=== PATIENT | female | born 1960 | race Caucasian/White ===

== ENCOUNTER → 2016-05-29 | Outpatient (CLI) | payer BC ==
--- NOTE | 2016-05-30 10:11 | MM ---
Reason for exam: screening (asymptomatic). Last mammogram was performed 3 years and 1 month ago. History: Patient is postmenopausal and is nulliparous. Family history of breast cancer in sister at age 68. Taking estrogen beginning at age 44. Physical Findings: A clinical breast exam by your physician is recommended on an annual basis and results should be correlated with mammographic findings. MG Screening Mammo w CAD Bilateral CC and MLO view(s) were taken. Prior study comparison: April 16, 2013, bilateral digital screening mammo w/CAD. November 19, 2006, bilateral screening mammogram w/CAD. There are scattered fibroglandular densities. There is no discrete abnormality. ASSESSMENT: Negative, BI-RAD 1 RECOMMENDATION: Routine screening mammogram of both breasts in 1 year.
== END ==
LOC: RADMAMWWP 15:30
PROVIDERS: ATTEND Family Medicine
DX: Z12.31 Encounter for screening mammogram for malignant neoplasm of breast (principal); Z80.3 Family history of malignant neoplasm of breast

== ENCOUNTER → 2019-07-07 | Outpatient (CLI) | payer OTHER ==
--- NOTE | 2019-07-07 08:43 | US ---
EXAMINATION TYPE: US thyroid st tissue head/neck DATE OF EXAM: 07/07/2019 COMPARISON: Prior thyroid ultrasound October 17, 2011 CLINICAL HISTORY: E04.1 Thyroid nodule. f/u exam, previous biopsies, took radiation pill this past y ear GLAND SIZE: Right Lobe: 2.8 x 1.2 x 0.7 cm Overall Parenchyma: heterogenous Left Lobe: 3.4 x 1.1 x 1.2 cm Overall Parenchyma: heterogeneous Isthmus Thickness: 0.1 cm NODULES RIGHT: # of nodules measured on right: 0 LEFT: # of nodules measured on left: 0 ISTHMUS: # of nodules measured in the isthmus: 0 Bilateral neck scanned, no evidence of lymphadenopathy. There is markedly heterogeneous small size thyroid after iodine radiation treatment with poor visuali zation of discrete nodule. Punctate echogenic foci or calcifications scattered throughout the left th yroid lobe remain present. IMPRESSION: Small residual heterogeneous thyroid after suspected iodine treatment with left-sided chanda rocalcifications redemonstrated. No discrete nodule clearly seen currently.
--- NOTE | 2019-07-08 12:15 | MM ---
Reason for exam: screening (asymptomatic). Last mammogram was performed 3 years and 1 month ago. History: Patient is postmenopausal and is nulliparous. Family history of breast cancer in sister at age 68. Took estrogen beginning at age 44. Taking progesterone. Physical Findings: A clinical breast exam by your physician is recommended on an annual basis and results should be correlated with mammographic findings. MG Screening Mammo w CAD Bilateral CC and MLO view(s) were taken. Prior study comparison: May 29, 2016, bilateral MG screening mammo w CAD. April 16, 2013, bilateral digital screening mammo w/CAD. There are scattered fibroglandular densities. No suspicious abnormality. No significant changes when compared with prior studies. ASSESSMENT: Negative, BI-RAD 1 RECOMMENDATION: Routine screening mammogram of both breasts in 1 year.
== END | disposition home or self-care (01) ==
LOC: RADMAMWWP 07:08
PROVIDERS: ATTEND Family Medicine
DX: Z12.31 Encounter for screening mammogram for malignant neoplasm of breast (principal); E07.89 Other specified disorders of thyroid
CPT/HCPCS: 76536; 77067

== ENCOUNTER → 2020-05-27 | Outpatient (CLI) | payer OTHER ==
--- NOTE | 2020-05-27 07:42 | MR ---
EXAMINATION TYPE: MR angio head wo con DATE OF EXAM: 05/27/2020 COMPARISON: NONE HISTORY: Vision loss, headaches TECHNIQUE: Time of flight images focusing on the [place] were performed without contrast.. 2-D and 3-D postprocessing imaging is performed on a independent workstation and reviewed. FINDINGS: Slightly larger caliber right vertebral artery. Vertebral arteries are patent to basilar ju nction. Hypoplastic bilateral posterior communicating arteries. No significant focal stenosis or aneu rysmal change in the anterior circulation. There is patent anterior communicating artery seen on image 114. There is no significant focal stenos is or aneurysmal change in the anterior circulation IMPRESSION: No significant focal stenosis or aneurysm at the level of the [place].
== END | disposition home or self-care (01) ==
LOC: RADMRIMAIN 06:46
PROVIDERS: ATTEND Nurse Practitioner Family
DX: H47.293 Other optic atrophy, bilateral (principal); H53.9 Unspecified visual disturbance; R51.9 Headache, unspecified
CPT/HCPCS: 70544

== ENCOUNTER → 2022-05-29 | Outpatient (CLI) | payer OTHER ==
--- NOTE | 2022-05-29 10:18 | BD ---
EXAMINATION TYPE: Axial Bone Density DATE OF EXAM: 05/29/2022 COMPARISON: BASELINE CLINICAL HISTORY: 61 years old Female. ICD-10 CODE: Z78.0 asymptomatic menopausal Height: 68 Weight: 240 FRAX RISK QUESTIONS: Family History (Parent hip fracture): NO History of Fracture in Adulthood: NO Secondary Osteoporosis: YES 3. Menopause before 45: YES TOTAL HYST 43 Rheumatoid Arthritis: NO RISK FACTORS HISTORY OF: Surgery to Wrist (right/left): YES When: 1999 Family History of Osteoporosis: NO Active: YES Diet low in dairy products/other sources of calcium: YES Postmenopausal woman: YES Lost more than 2 inches in height since high school: YES Frequent falls: NO Poor Health: NO MEDICATIONS: Thyroid Medications: YES Which medication: Synthroid How Lon+ YEARS Additional Medications: YES CYMBALTA , HBP , MULTI VIT, D3 Additional History: YES RADIOACTIVE IODINE FOR THYROID 2004 EXAM MEASUREMENTS: Bone mineral densitometry was performed using the E-House System. Bone mineral density as measured about the Lumbar spine is: ----- L1-L4(G/cm2): 1.462 T Score Values are as follows: ----- L1: 1.0 ----- L2: 1.6 ----- L3: 3.1 ----- L4: 3.5 ----- L1-L4: 2.4 Bone mineral density BASELINE Bone mineral density about the R hip (g/cm2): 0.946 Bone mineral density about the L hip (g/cm2): 0.914 T Score values are as follows: -----R Neck: -1.1 -----L Neck: -1.5 -----R Total: -0.5 -----L Total: -0.7 Bone mineral density BASELINE FRAX%s: The graph provided illustrates a 7.6% chance for a major osteoporotic fx and a 0.6% chance fo r the hips probability for fx in 10 years time. IMPRESSION: Osteopenia (T Score between -2.5 and -1). There is slightly increased risk of fracture and the patient may be considered for treatment. Re-Screen 2-5 years. NOTE: T-SCORE=SD OF THE YOUNG ADULT MEAN.
--- NOTE | 2022-05-30 08:27 | MM ---
Reason for Exam: Screening (asymptomatic). Last mammogram was performed 2 year(s) and 10 month(s) ago. Patient History: Menarche at age 15. Patient has no children. Left ovary removed at age 44. Right ovary removed at age 44. Hysterectomy at age 44. Postmenopausal. Estrogen, starting at age 44. Currently using Progesterone. Sister had breast cancer, age 68. Risk Values: Lydia 5 year model risk: 2.7%. NCI Lifetime model risk: 12.4%. Prior Study Comparison: 04/16/2013 Bilateral Screening Mammogram, [facility]. 05/29/2016 Bilateral Screening Mammogram, [facility]. 07/07/2019 Bilateral Screening Mammogram, [facility]. Tissue Density: There are scattered fibroglandular densities. Findings: Analyzed By CAD. There is no suspicious group of microcalcifications or new suspicious mass in either breast. Overall Assessment: Negative, BI-RAD 1 Management: Screening Mammogram of both breasts in 1 year. A clinical breast exam by your physician is recommended on an annual basis and results should be correlated with mammographic findings. Electronically signed and approved by: Deonte Arias M.D. Radiologis
== END | disposition home or self-care (01) ==
LOC: RADBDWWP 09:20
PROVIDERS: ATTEND Internal Medicine
DX: Z12.31 Encounter for screening mammogram for malignant neoplasm of breast (principal); Z13.820 Encounter for screening for osteoporosis; M85.89 Other specified disorders of bone density and structure, multiple sites; Z78.0 Asymptomatic menopausal state; Z80.3 Family history of malignant neoplasm of breast
CPT/HCPCS: 77067; 77080

== ENCOUNTER → 2022-11-21 | Outpatient (CLI) | payer OTHER ==
[2022-11-21 11:06] LABS: INR 0.9 (<1.2); Prothrombin Time 9.6 sec (9.0-12.0)
[2022-11-21 17:31] LABS: ALT 18 U/L (8-44); AST 22 U/L (13-35); Albumin 4.4 d/dL (3.8-4.9); Albumin/Globulin Ratio 1.76 Ratio (1.60-3.17); Alkaline Phosphatase 94 U/L (41-126); BUN/Creat Ratio 24.62 Ratio (12.00-20.00); Blood Urea Nitrogen 19.7 mg/dL (9.0-27.0); Calcium 10.3 mg/dL (8.7-10.3); Carbon Dioxide 26.2 mmol/L (21.6-31.8); Chloride 106 mmol/L (96-109); Globulin 2.5 d/dL (1.6-3.3); Glucose 106 mg/dL (70-110); Potassium 4.8 mmol/L (3.5-5.5); Sodium 141 mmol/L (135-145); Total Bilirubin 1.1 mg/dL (0.3-1.2); Total Protein 6.9 d/dL (6.2-8.2)
[2022-11-21 17:55] LABS: HCT 48.3 % (37.2-46.3); HGB 15.7 d/dL (12.0-15.0); MCH 30.7 pg (27.0-32.0); MCHC 32.5 d/dL (32.0-37.0); MCV 94.5 FL (80.0-97.0); Mean Platelet Volume 11.3 FL (9.5-12.2); NRBC Per 100 WBC 0 X 10*3/uL (0.00-0.01); Platelet Count 333 X 10*3/uL (140-440); RBC 5.11 X 10*6/uL (4.10-5.20); RDW 12.6 % (11.5-14.5); WBC 6.56 X 10*3/uL (4.50-10.00)
[2022-11-21 21:22] LABS: Appearance,Urine Clear (Clear); Bilirubin,Urine Negative (Negative); Blood,Urine Negative (Negative); Color,Urine Yellow (Yellow); Ketones,Urine Negative (Negative); Nitrite,Urine Negative (Negative); PH, Urine 5.5; Specific Gravity,Urine 1.021 (1.001-1.030); Urobilinogen,Urine 0.2 E.U./DL
== END | disposition home or self-care (01) ==
LOC: LABPAT 09:19
PROVIDERS: ATTEND Orthopaedic Surgery Sports Medicine
DX: Z01.812 Encounter for preprocedural laboratory examination (principal); M17.10 Unilateral primary osteoarthritis, unspecified knee
CPT/HCPCS: 80053; 81003; 85027; 85610; 85730; 87070; 93005

== ENCOUNTER → 2022-11-23 | Outpatient (CLI) | payer OTHER | END | disposition home or self-care (01) | LOC: LABPAT 15:14 | PROVIDERS: ATTEND Orthopaedic Surgery Sports Medicine | DX: I49.8 Other specified cardiac arrhythmias (principal); I44.4 Left anterior fascicular block; R94.31 Abnormal electrocardiogram [ECG] [EKG] | CPT/HCPCS: 93005 ==

== ENCOUNTER 2022-12-20 05:33 | Day surgery (SDC) | payer OTHER ==
[~2022-12-20 05:33] MED LIST: ACETAMINOPHEN TAB 500 MG TAB PO PRN; GABAPENTIN 300 MG CAP PO PRN; MELOXICAM 7.5 MG TAB PO PRN; ONDANSETRON 4 MG/2 ML VIAL IVP PRN; TRANEXAMIC 1,000 MG/100ML-NACL 1,000 MG in SALINE 1 100ML.BAG IVPB PRN
[2022-12-20] MEDS ORDERED: LACTATED RINGERS 1,000 ML IV ONE ×2 (05:45→08:41)
[2022-12-20] MEDS ORDERED: MIDAZOLAM 2 MG/2 ML VIAL IV PRN (05:52)
[2022-12-20] MEDS ORDERED: ONDANSETRON 4 MG/2 ML VIAL IVP ONE (05:52)
[2022-12-20] MEDS ORDERED: DEXAMETHASONE SOD PHOSPHATE 4 MG/ML 1 ML VIAL IV ONE (05:52)
[2022-12-20] MEDS ORDERED: LIDOCAINE 1% (10MG/ML) FOR IV START INTRADERMA PRN (05:52)
[2022-12-20] MEDS ORDERED: HYDROmorphone 0.5 MG/0.5 ML SYRINGE IVP PRN ×3 (05:52→07:05)
[2022-12-20 06:25] LABS: Glucose,Whole Blood 104 mg/dL (70-110)
[2022-12-20] MEDS ORDERED: MIDAZOLAM 2 MG/2 ML VIAL IVP ONE ×2 (06:38→06:50)
[2022-12-20] MEDS ORDERED: fentaNYL (PF) 50 MCG/ML 2 ML AMP ONE (07:00)
[2022-12-20] MEDS ORDERED: PHENYLEPHRINE-0.9% NACL SYG 1,000 MCG/10 ML SYRINGE ONE (07:00)
[2022-12-20] MEDS ORDERED: PROPOFOL 10 MG/ML 20 ML VIAL IV ONE (07:00)
[2022-12-20] MEDS ORDERED: ROPIVACAINE 5 MG/ML 30 ML VIAL ONE (07:00)
[2022-12-20] MEDS ORDERED: KETAMINE 10 MG/ML 20 ML VIAL ONE (07:00)
[2022-12-20] MEDS ORDERED: MIDAZOLAM 2 MG/2 ML VIAL ONE (07:00)
[2022-12-20] MEDS ORDERED: TRANEXAMIC 1,000 MG/100ML-NACL PREMIX BAG ONE (07:00)
[2022-12-20] MEDS ORDERED: DEXAMETHASONE SOD PHOSPHATE 4 MG/ML 1 ML VIAL ONE (07:00)
[2022-12-20] MEDS ORDERED: NALOXONE 0.4 MG/ML 1 ML VIAL IV PRN (07:05)
[2022-12-20] MEDS ORDERED: NA PHOS,M-B/NA PHOS,DI-BA 133 ML ENEMA RECTAL PRN (07:05)
[2022-12-20] MEDS ORDERED: HYDROmorphone 1 MG/ML 1 ML SYRINGE IVP PRN (07:05)
[2022-12-20] MEDS ORDERED: MAGNESIUM HYDROXIDE 2,400 MG/30 ML CUP PO PRN (07:05)
[2022-12-20] MEDS ORDERED: ACETAMINOPHEN TAB 325 MG TAB PO PRN (07:05)
[2022-12-20] MEDS ORDERED: bisacodyL 10 MG SUPP RECTAL PRN (07:05)
[2022-12-20] MEDS ORDERED: traMADol 50 MG TAB PO PRN (07:05)
[2022-12-20] MEDS ORDERED: ONDANSETRON 4 MG/2 ML VIAL IVP PRN (07:05)
[2022-12-20] MEDS ORDERED: ceFAZolin 3,000 MG in SODIUM CHLORIDE 0.9% IRRIGATIO 3,000 ML IRRIGATION ONE (07:35)
[2022-12-20] MEDS ORDERED: ROPIVACAINE 1,100 MG, SODIUM CHLORIDE 0.9% 500 ML 330 ML, EMPTY PAIN BALL 1 EACH MISCELLANE PRN ×2 (09:34)
--- NOTE | 2022-12-20 09:47 | XR ---
EXAMINATION TYPE: XR knee limited LT DATE OF EXAM: 12/20/2022 9:44 AM INDICATION: Patient age:Female; 62 years old; Reason for study: Evaluation for Postop abnormality and alignment; PHH. COMPARISON: None. TECHNIQUE: The Left knee(s) was examined in AP and crosstable lateral projections. FINDINGS: Postsurgical changes from left knee arthroplasty with distal femoral and proximal tibial components. Hardware appears intact with appropriate alignment. There is associated soft tissue gas a nd edema. No acute fracture or dislocation. IMPRESSION: Postsurgical changes from left knee arthroplasty. Hardware appears intact with appropriate alignment.
--- NOTE | 2022-12-20 10:08 | OP ---
OPERATIVE REPORT DATE OF SERVICE : 12/20/2022 MANAGER PRODUCT MANAGEMENT: Galindo Menchaca PA-C PREOPERATIVE DIAGNOSIS: Left knee osteoarthrosis. POSTOPERATIVE DIAGNOSIS: Left knee osteoarthrosis. OPERATION: Left total knee arthroplasty. ANESTHESIA: Spinal with sedation. ESTIMATED BLOOD LOSS: 100 mL. TOURNIQUET TIME: 55 minutes at 250 mmHg. COMPLICATIONS: None apparent. DRAINS: None. DISPOSITION: Postanesthesia care unit. INDICATIONS FOR PROCEDURE: Marlin is a very pleasant 62-year-old female with longstanding history of left knee pain. History and physical examination are consistent with advanced left knee osteoarthrosis. She has been through significant operative management up to this point. Further treatment options were discussed. She decided to go forward with a left total knee arthroplasty. The risks of procedure were discussed with her in detail. These risks include but are not limited to risk of infection, nerve damage, bleeding, pain, and a small risk of deep vein thrombosis, which could lead to fatal pulmonary embolism. There is also a small risk of loosening of the implant, which could require revision operation. The patient understands these risks. All of her questions with regard to the procedure were answered to her satisfaction. An appropriate informed consent was obtained. DESCRIPTION OF PROCEDURE: The patient was identified in the preoperative holding area. Surgical site was marked by both the patient and myself. She was given 2 g of Ancef IV for prophylactic purposes. She was then transported to the operative suite. She was placed supine in the operating room table. A spinal anesthetic was then administered and dosed per the Anesthesia Department without apparent complication. An examination under anesthesia was then performed. She was 2 to 3 degrees shy of full extension. She had 100 degrees of flexion and the medial collateral ligament, lateral collateral ligament, and posterior cruciate ligaments were stable. Tourniquet was then placed high on the left upper thigh, well padded in preparation for surgery. The patient's left lower extremity was then prepped and draped in the usual sterile fashion. Standard surgical pause was undertaken to ensure that we were operating the correct site and that appropriate preoperative antibiotics had been given. All staff in the room were in agreement, and we proceeded. The outlines of the patella were then marked with a surgical pen. A planned 12 cm vertical incision centered over the patella was marked with a surgical pen. Leg was then exsanguinated with an Esmarch dressing. The knee was then flexed, and the tourniquet was inflated to 250 mmHg. The total tourniquet time for the procedure was 55 minutes. Incision was then made with a 10-blade scalpel. Dissection was carried down sharply to the overlying fascia. Great care was taken to minimize the skin flaps. The knee was then exposed using a standard medial parapatellar approach. A small cuff of quadriceps tendon was then left for suturing. She was in a small bit of valgus preoperatively. A minimal medial release was then made. Superficial medial collateral ligament was dissected off the bone around to the posterior aspect of the proximal tibia. Medial meniscus was then excised as well. The lateral meniscus was also released anteriorly. The leg was then externally rotated. The patella was everted. The knee was flexed. Retractors were then placed to protect the collateral ligaments. I then proceeded to remove the infrapatellar fat pad. This was excised sharply tangentially with fibers of the patellar tendon. I then proceeded to remove the peripheral osteophytes. This was done with a rongeur. I then proceeded with the distal femoral resection. She did have near full extension. A planned 9 mm resection was then done. The femoral canal was entered in the midline of the femur approximately 10 mm anterior to the origin of the posterior cruciate ligament. The rochelle was then advanced down the center of the femur and placed intramedullary. Based on the preoperative radiographs, the angle between the anatomic and mechanical axis of the femur was approximately 4 to 5 degrees. The valgus angle of the distal femoral cutting guide was then set at 4 degrees for the left knee. The distal cutting guide was then advanced over the intramedullary rochelle. This was seated firmly against the femur. Then, as mentioned, planned to take 9 mm off the distal femur. The cutting block was then secured onto the femur with pins. Jig was then removed. Distal femoral cut was made through the slot of the block. The pins were then removed. The distal femoral cutting block was removed. The accuracy of the distal femoral cuts was checked with 2 flat bars. I then proceeded with femoral sizing. Posterior referencing sizing guide was held firmly against the resected distal surface of the femur. The posterior condyles were resting on the posterior plane of the guide. The sizing stylus was then placed onto the anterior femur. The size was measured as a size 9. I then assessed for femoral rotation. Plan was for 3 degrees of external rotation. Three degrees of external rotation was placed onto the jig. These holes were then marked. I then confirmed the rotation by 3 separate methods. This was done using epicondylar axis as well as Whitesides line and posterior referencing. It was deemed that the external rotation was proper. I then went forward with placement of the femoral cutting block. This was placed over the previously placed pin holes. The Aníbal wing was then placed on the anterior slots to ensure that we would not notch the anterior femur with the anterior femoral cut. I then proceeded with the anterior femoral cut. This was flushed with the anterior cortex of the femur. The posterior cuts were then made followed by the anterior chamfer cut and then the posterior chamfer cut. The cutting block was then removed. Throughout the resection, the collateral ligaments were protected with retractors. I then placed a trial size 9 femur. It fit very nicely and it fit flush with the distal end of the femur. The drill holes were then made. I then proceeded with the tibial cut. I planned for cruciate-retaining knee. The guide was placed and set for varus/valgus and for slope. The height was set for approximately 2 mm resection from the lateral tibial plateau, which was the lower side. I was happy with the alignment and the amount of resection. The cutting block was then pinned to the proximal tibia. The alignment rochelle was removed, and the proximal tibia was resected with a reciprocating saw. Again, this was done with retractors, protecting the collateral ligaments as well as the posterior cruciate ligament. I then proceeded to re-evaluate flexion-extension gaps. A 10 mm block was then placed. The flexion-extension gaps were equal. I then proceeded to resect the posterior osteophytes. She had very minimal posterior osteophytes. This was done using a curved osteotome. This resected the posterior osteophytes, and posterior capsular stripping was done off the posterior aspect of the femur at this time. The osteophytes were then removed. I then proceeded with the resection of the patella. The thickness of the patella was measured using the caliper. The thickness was 22 mm. The thickness of the anticipated patellar dome was taken into account. Resection was then performed and confirmed to be equal in 4 quadrants using a caliper. Approximately 14 mm of bone remained after resection. A 29 x 8 standard patellar trial was then placed. The holes were drilled, and the trial was then placed. I then proceeded with sizing tibial plate. A size E tibial plate fit very nicely. I then placed the trial femur, the tibial tray, and patellar button. A 10 mm trial tibial insert was also placed. The components fit very nicely. She had full extension and flexion. The extension and flexion gaps were equal and stable to both varus and valgus stress. The patella tracked appropriately. The tibial tray rotation was then marked with a Bovie. It was externally rotated properly. I then proceeded with tibial preparation. I first drilled the femoral holes and removed the femoral component. The tibial tray was then set for proper external rotation as well as medial and lateral placement of the tibia. This was then pinned in place. I then proceeded with punching the keel. I then decided to proceed with cementing of all our components. The knee was thoroughly irrigated with sterile saline solution via pulse lavage. The lateral geniculate artery was identified and cauterized. All blood was removed from the bone of the tibia, femur, and patella with pulse lavage. I then proceeded with cementing. Two packs of antibiotic bone cement prepared on the back table by the surgical garment assembler. I then proceeded with cementing the tibia first. The cement was impacted into the keel as well as deeply seated into the bone. A second coat of cement was then placed. The tibia was then impacted into place. Excess cement was removed with Michael's and Joker's. I then proceeded with cementing of the femoral component. The femoral component was also cemented using standard technique. Excess cement was removed. A 10 mm trial insert was then placed into the knee. It was brought into full extension with a constant axial load placed until the cement had hardened. The patellar component was then cemented. This was held firmly with a compressive device until the cement had dried. When the cement had dried, the knee was taken out of extension. All excess cement was removed from around the prosthesis. I then trialed the knee with a 10 mm insert. Flexion and extension gaps were appropriate. The knee was stable. It came into full extension. I decided to go forward with the 10 mm Medial Congruent cross-linked cruciate-retaining tibial insert. Polyethylene was then placed on the tibial tray and locked into place. The knee was then reduced. The knee was again further irrigated with sterile saline solution with antibiotic added. The tourniquet was then deflated. The tourniquet was then deflated. Total tourniquet time for the procedure was 55 minutes at 250 mmHg. Final components were Benny Persona Tivanium size 9 cruciate-retaining femoral component, a size E tibial tray, a 10 mm medial congruent cruciate-retaining polyethylene insert, and a 29 x 8 mm patella. I then proceeded with closure. Again, the knee was thoroughly irrigated. The quadriceps tendon and the medial retinaculum were reapproximated with #2 Ethibond suture. The extensor mechanism was then closed with a running #2 Quill suture. Subcutaneous tissues were closed with 2-0 Vicryl interrupted suture. The skin was closed with a running 3-0 Quill suture. Dermabond was applied to the incision. A sterile compressive dressing was then applied. All sponge and needle counts were deemed correct prior to closure. The patient tolerated the procedure without apparent complication. She was transferred to the recovery room in stable condition. MMODL / IJN: [id number] /
[2022-12-20] MEDS: LACTATED RINGERS 1,000 ML IV SCH ×5 (12:10→23:54)
[2022-12-20] MEDS: HYDROcodone/APAP 7.5-325MG 1 EACH TAB PO PRN ×2 (13:19→18:13)
[2022-12-20] MEDS ORDERED: LORazepam 1 MG TAB PO PRN (13:26)
[2022-12-20] MEDS ORDERED: DEXTROSE 50% SYRINGE 50 ML IVP PRN ×2 (13:27)
--- NOTE | 2022-12-20 13:29 | P.CONS ---
History of Present Illness - Reason for Consult Consult date: 12/20/22 Medical Management Requesting physician: Wilian Good - History of Present Illness History of Presenting Illness: Patient is a pleasant 62-year-old female with a past medical history of hypertension, hypothyroidism, GERD, type II nxg-udsmdqx-tzmlsapcd diabetes mellitus, chronic constipation, diverticulosis, anxiety with history of panic attacks, and osteoarthritis. She is currently admitted to orthopedic surgery team status post left total knee arthroplasty completed by Dr. Good. We have been consulted for medical management throughout patient's hospitalization. Patient seen and fully evaluated at bedside. She was resting comfortably in bed with family visiting at bedside. She reports postoperative pain to left knee is controlled, but does report that her eyes feel extremely dry. She denies having any headache, lightheadedness, dizziness, chest pain, palpitations, shortness of breath, or experiencing any numbness/tingling/focal weakness in her extremities. She denies experiencing any postoperative nausea or vomiting and tolerating oral intake. She reports so far she is having a much easier time and she had with her right knee 6 months ago. She denies history of DVT or PE. She is tolerating oral intake and denies having any postoperative nausea or vomiting. Review of systems: Pertinent positives and negatives as discussed in HPI, a complete review of systems was performed and all other systems are negative. Physical exam: Vital signs reviewed and stable. General: Nontoxic, no distress and appears stated age. Derm: Skin warm and dry, normal coloration for ethnicity. Head: Atraumatic, normocephalic and symmetric. Eyes: EOMs intact, no lid lag, and anicteric sclera Mouth: no lip lesions, mucus membranes moist Cardiovascular: regular rate and rhythm with normal S1S2, no murmur, positive posterior tibial pulses bilaterally, and cap refill < 2 seconds. Lungs: Respirations even, regular, and unlabored on room air. Lungs CTA bilater ally, no rhonchi, no rales, no wheezing, and no accessory muscle usage. Abdominal: soft, nontender to palpation, no guarding, no appreciable organomegaly Ext: No gross muscle atrophy, no edema, no contractures. Movement and sensation intact. Postsurgical dressing/Luiz wrap in place to left knee along with ice packs. Neuro: Speech clear, face symmetrical and CN II-XII grossly intact with no noted focal neuro deficits Psych: Alert and oriented to person, place, time, and situation. Appropriate and pleasant affect. Assessment and Plan of Care: Patient is currently admitted under orthopedic surgery team and we were consulted for medical management of patient's hypertension, hypothyroidism, and diabetes throughout her hospitalization. Status post left total knee arthroplasty -DVT prophylaxis, pain management, weightbearing, and PT/OT per primary admitting orthopedic surgery team. -DVT prophylaxis with aspirin 81 mg twice daily. -CBC and BMP ordered for tomorrow morning. Reviewed previous hospital records, preoperative hemoglobin was 15.7 on 11/21/22. We will follow up on postoperative labs and place additional orders as indicated based upon these results. Tnc-mfnzofj-[id number] Diabetes -Fasting blood glucose 104. At this time we will hold Ozempic and place patient on glycemic protocol with NovoLog sliding scale. Hypertension -Patient to continue daily medication regimen with propranolol 60 mg twice daily. GERD -Patient placed on GI prophylaxis with Protonix. Hypothyroidism -Reviewed home medications and reordered levothyroxine 100 g each morning. Anxiety with history of previous panic attacks -Patient currently denies feeling anxious or agitated. Home medications reviewed and ordered a placed for patient to resume Cymbalta 60 mg daily. Thank you for allowing us to participate in the care of this pleasant patient. Do not hesitate to contact us with questions. Someone can be reached from the [facility] hospitalist group all hours of the day at [phone] or via [employer]. Patient was seen independently by Nurse Practitioner. This document was prepared using [employer] dictation software. Please allow for errors in shot core drill operator helper while rare they do occur. Palomo Denson NP rendered care for this patient independently, reviewed the findings and plan as documented in the note above. I did not physically speak with or examine the patient on this date. Past Medical History Past Medical History: Diabetes Mellitus, Hypertension, Osteoarthritis (OA), Thyroid Disorder Additional Past Medical History / Comment(s): chronic constipation and lower le ft abdominal pain,hx diverticulosis, arthritis knees, spine and wrist. History of Any Multi-Drug Resistant Organisms: None Reported Past Surgical History: Hysterectomy, Orthopedic Surgery Additional Past Surgical History / Comment(s): Right total knee surgery, bilateral wrist surgery.colonoscopy Past Anesthesia/Blood Transfusion Reactions: Motion Sickness Additional Past Anesthesia/Blood Transfusion Reaction / Comm: states "has anxiety attacks if partially alert during procedures/OR Past Psychological History: Panic Disorder Smoking Status: Former smoker Past Alcohol Use History: Rare Additional Past Alcohol Use History / Comment(s): quit smoking 1989,smoked for approx 12 yr 2ppd Past Drug Use History: None Reported - Past Family History Mother Family Medical History: Diabetes Mellitus Father Family Medical History: CVA/TIA Additional Family Medical History / Comment(s): emphysema Brother(s) Family Medical History: Cancer, Diabetes Mellitus Additional Family Medical History / Comment(s): Non hodgkins lymphoma. Sister(s) Family Medical History: Cancer Additional Family Medical History / Comment(s): Breast cancer. Medications and Allergies Home Medications Medication Instructions Recorded Confirmed Type Multivitamins, Thera [Multivitamin] 1 tab PO DAILY 08/24/15 12/20/22 History Ascorbic Acid [Vitamin C] 1,000 mg PO DAILY 06/01/22 12/20/22 History Biotin [Biotin Disolve] 10,000 mcg PO DAILY 06/01/22 12/20/22 History Cholecalciferol [Vitamin D3 (25 50 mcg PO DAILY 06/01/22 12/20/22 History Mcg = 1000 Iu)] DULoxetine HCL [Cymbalta] 60 mg PO QAM 06/01/22 12/20/22 History Furosemide [Lasix] 40 mg PO DAILY PRN 06/01/22 12/20/22 History LORazepam [Ativan] 2 mg PO DAILY PRN 06/01/22 12/20/22 History Levothyroxine Sodium [Synthroid] 100 mcg PO QAM 06/01/22 12/20/22 History Melatonin 3 mg PO HS 06/01/22 12/20/22 History Propranolol HCl [Inderal] 60 mg PO BID 06/01/22 12/20/22 History polyethylene glycoL 3350 [Miralax] 17 gm PO BID 06/01/22 12/20/22 History Aspirin [Adult Low Dose Aspirin EC] 81 mg PO DAILY 12/12/22 12/20/22 History Naproxen Sodium [Aleve] 220 mg PO DAILY PRN 12/12/22 12/20/22 History Unk Ozempic 0.5 mg SQ WE 12/12/22 12/20/22 History Aspirin [Adult Low Dose Aspirin EC] 81 mg PO BID #60 tab 12/21/22 Rx Cyclobenzaprine [Flexeril] 10 mg PO TID PRN #21 tab 12/21/22 Rx Docusate [Colace] 100 mg PO BID #60 capsule 12/21/22 Rx HYDROcodone/APAP 7.5-325MG [[place] 1 - 2 each PO Q6HR PRN #42 tab 12/21/22 Rx 7.5-325] Ondansetron Odt [Zofran Odt] 4 mg PO Q8HR PRN #40 tab 12/21/22 Rx Ondansetron [Zofran] 4 mg PO Q8HR PRN #21 tab 12/21/22 Rx Allergies Allergy/AdvReac Type Severity Reaction Status Date / Time metal Allergy rash,skin Uncoded 12/20/22 05:55 blisters Physical Exam Vitals: Vital Signs Temp Pulse Pulse Resp BP BP Pulse Ox 12/20/22 11:35 60 16 103/61 100 12/20/22 11:15 57 L 16 94/60 99 12/20/22 10:45 66 16 103/63 98 12/20/22 10:15 65 16 103/64 98 12/20/22 09:58 61 16 102/63 98 12/20/22 09:43 67 16 103/61 96 12/20/22 09:28 61 16 121/66 99 12/20/22 09:13 96.9 F L 69 17 117/58 98 12/20/22 07:00 77 16 129/69 97 12/20/22 05:45 98.2 F 77 16 135/75 94 L Intake and Output 12/19/22 12/20/22 12/20/22 22:59 06:59 14:59 Intake Total 200 1501 Output Total 100 Balance 200 1401 Intake: IV 200 1501 Output: Estimated Blood Loss 100 Other: Weight 103.5 kg 103.5 kg Results CBC & Chem 7: 12/21/22 07:36 12/21/22 07:36
[2022-12-20] MEDS ORDERED: ARTIFICIAL TEARS-HYPROMELLOSE DROPS 15 ML BTL BOTH EYES PRN (14:49)
[2022-12-20 16:55] LABS: Glucose,Whole Blood 160 mg/dL (70-110)
[2022-12-20] MEDS: INSULIN ASPART (NovoLOG) 100 UNIT/ML VIAL SQ SCH ×2 (18:18→21:17)
--- NOTE | 2022-12-20 19:52 | P.ANPRN ---
Procedure Note - Anesthesia - Nerve Block Performed Left Adductor Canal Infusion Time Out Performed: Yes Date of Procedure: 12/20/22 Procedure Start Time: 06:37 Procedure Stop Time: 06:49 Location of Patient: PreOp Indication: Acute Post-Operative Pain, Requested by Surgeon Sedation Type: Sedate with meaningful contact maintained Preparation: Sterile Prep, Sterile Dressing Position: Supine Catheter: Indwelling Needle Types: Pajunk Needle Gauge: 21 Ultrasound used to visualize needle placement: Yes Ultrasound used to observe medication spread: Yes Blood Aspirated: No Pain Paresthesia on Injection Noted: No Resistance on Injection: Normal Image Stored and Saved: Yes Events: Uneventful and Well Tolerated (Ropivacaine 0.5% 20 mL plus dexamethasone 4 mg)
--- NOTE | 2022-12-20 19:53 | P.ANPRN ---
Procedure Note - Anesthesia - Nerve Block Performed Left iPack Single Time Out Performed: Yes Date of Procedure: 12/20/22 Procedure Start Time: 06:50 Procedure Stop Time: 06:53 Location of Patient: PreOp Indication: Acute Post-Operative Pain, Requested by Surgeon Sedation Type: Sedate with meaningful contact maintained Preparation: Sterile Prep Position: Supine Needle Types: Pajunk Needle Gauge: 21 Ultrasound used to visualize needle placement: Yes Ultrasound used to observe medication spread: Yes Blood Aspirated: No Pain Paresthesia on Injection Noted: No Resistance on Injection: Normal Image Stored and Saved: Yes Events: Uneventful and Well Tolerated (Ropivacaine 0.5% 20 mL plus dexamethasone 4 mg)
[2022-12-20 20:19] LABS: Glucose,Whole Blood 183 mg/dL (70-110)
[2022-12-20] MEDS ORDERED: MELATONIN 3 MG TABLET PO SCH (21:00)
[2022-12-20] MEDS ORDERED: SENNOSIDES-DOCUSATE SODIUM 1 EACH TAB PO SCH (21:00)
[2022-12-20] MEDS: ASPIRIN 81 MG PO SCH (21:17)
[2022-12-20] MEDS: polyethylene glycoL 3350 17 GM POWD.PACK PO SCH (21:18)
[2022-12-20] MEDS: PROPRANOLOL 20 MG TAB PO SCH (21:18)
[2022-12-21] MEDS: HYDROcodone/APAP 7.5-325MG 1 EACH TAB PO PRN ×3 (02:48→14:07)
[2022-12-21 06:15] LABS: Glucose,Whole Blood 130 mg/dL (70-110)
[2022-12-21] MEDS ORDERED: LEVOTHYROXINE 100 MCG TAB PO SCH (06:30)
[2022-12-21] MEDS: INSULIN ASPART (NovoLOG) 100 UNIT/ML VIAL SQ SCH ×2 (06:30→12:38)
[2022-12-21] MEDS ORDERED: DULoxetine HCL 60 MG CAPSULE.DR PO SCH (09:00)
[2022-12-21] MEDS: PROPRANOLOL 20 MG TAB PO SCH (09:28)
[2022-12-21] MEDS: ASPIRIN 81 MG PO SCH (09:28)
[2022-12-21 09:29] VITALS: BP 103/68; PULSE 73; RESP 16; TEMP 97.6
[2022-12-21] MEDS: polyethylene glycoL 3350 17 GM POWD.PACK PO SCH (09:30)
--- NOTE | 2022-12-21 10:43 | P.PN ---
Subjective Progress Note Date: 12/21/22 Hospital course: Patient is a pleasant 62-year-old female with a past medical history of hypertension, hypothyroidism, GERD, type II xhh-vizknor-ygxuxogmp diabetes mellitus, chronic constipation, diverticulosis, anxiety with history of panic attacks, and osteoarthritis. She is currently admitted to orthopedic surgery team status post left total knee arthroplasty completed by Dr. Good. We were consulted for medical management throughout patient's hospitalization. Physical exam: Vital signs reviewed and stable. General: Nontoxic, no distress and appears stated age. Derm: Skin warm and dry, normal coloration for ethnicity. Head: Atraumatic, normocephalic and symmetric. Eyes: EOMs intact, no lid lag, and anicteric sclera Mouth: no lip lesions, mucus membranes moist Cardiovascular: regular rate and rhythm with normal S1S2, no murmur, positive posterior tibial pulses bilaterally, and cap refill < 2 seconds. Lungs: Respirations even, regular, and unlabored on room air. Lungs CTA bilaterally, no rhonchi, no rales, no wheezing, and no accessory muscle usage. Abdominal: soft, nontender to palpation, no guarding, no appreciable organomegaly Ext: No gross muscle atrophy, no edema, no contractures. Movement and sensation intact. Postsurgical dressing/Luiz wrap in place to left knee along with ice packs. Neuro: Speech clear, face symmetrical and CN II-XII grossly intact with no noted focal neuro deficits Psych: Alert and oriented to person, place, time, and situation. Appropriate and pleasant affect. Assessment and Plan of Care: Patient is currently admitted under orthopedic surgery team and we were consulted for medical management of patient's hypertension, hypothyroidism, and diabetes throughout her hospitalization. Acute postoperative blood loss anemia. Hemoglobin 11.5 with preoperative hemoglobin of 15.7. Acute postoperative blood loss anemia is expected and stable finding. No need for transfusion or any further workup or intervention at this time. Status post left total knee arthroplasty -DVT prophylaxis, pain management, weightbearing, and PT/OT per primary admitting orthopedic surgery team. -DVT prophylaxis with aspirin 81 mg twice daily. Keq-[id number]-darygxjeb Diabetes -Hemoglobin A1c 6%. Recommend patient resuming Ozempic upon discharge. Hypertension -Patient to continue daily medication regimen with propranolol 60 mg twice daily. GERD -Patient placed on GI prophylaxis with Protonix. Hypothyroidism -Reviewed home medications and reordered levothyroxine 100 g each morning. Anxiety with history of previous panic attacks -Patient to continue with Cymbalta 60 mg daily. Data review Vital signs reviewed and stable. Blood pressure 100/68, heart rate 73, respiratory rate 16, temp 97.6 her neck, SpO2 of 98% on room air. Postsurgical labs reviewed. Preoperative hemoglobin was 15.7 and postoperative hemoglobin showing acute blood loss anemia with hemoglobin stable at 11.5. This is an expected finding and no further orders needed at this time. BMP was unremarkable. From a medical perspective, patient cleared for discharge once cleared by primary admitting orthopedic surgery team. Thank you for allowing us to participate in the care of this pleasant patient. Do not hesitate to contact us with questions. Someone can be reached from the [facility] hospitalist group all hours of the day at [phone] or via [employer]. Patient was seen independently by Nurse Practitioner. This document was prepared using [employer] dictation software. Please allow for errors in mattress and boxsprings supervisor while rare they do occur. Palomo Denson NP rendered care for this patient independently, reviewed the findings and plan as documented in the note above. I did not physically speak with or examine the patient on this date. Objective - Vital Signs Vital signs: Vital Signs Temp 97.6 F 12/21/22 08:35 Pulse 73 12/21/22 08:35 Resp 16 12/21/22 08:35 BP 103/68 12/21/22 08:35 Pulse Ox 98 12/21/22 08:35 FiO2 Intake & Output 12/20/22 12/21/22 12/21/22 18:59 06:59 18:59 Intake Total 1501 Output Total 100 Balance 1401 Weight 103.5 kg Intake: IV 1501 Output: Estimated Blood Loss 100 Other: Voiding Method Toilet # Voids 1 2 - Labs CBC & Chem 7: 12/21/22 07:36 12/21/22 07:36 Labs: Abnormal Lab Results - Last 24 Hours (Table) 12/20/22 12/20/22 12/21/22 Range/Units 16:54 20:18 06:09 POC Glucose (mg/dL) 160 H 183 H 130 H (70-110) mg/dL
[2022-12-21 11:08] LABS: Basophils # (A) 0.02 X 10*3/uL (0.00-0.10); Basophils % (A) 0.2 %; Eosinophils # (A) 0.01 X 10*3/uL (0.04-0.35); Eosinophils % (A) 0.1 %; HCT 35.5 % (37.2-46.3); HGB 11.5 d/dL (12.0-15.0); Lymphocytes % (A) 14.4 %; MCH 30.9 pg (27.0-32.0); MCHC 32.4 d/dL (32.0-37.0); MCV 95.4 FL (80.0-97.0); Mean Platelet Volume 11.5 FL (9.5-12.2); Monocytes # (A) 1.32 X 10*3/uL (0.20-1.00); NRBC Per 100 WBC 0 X 10*3/uL (0.00-0.01); Neutrophils # (A) 9.93 X 10*3/uL (1.80-7.70); Neutrophils % (A) 74.9 %; Platelet Count 236 X 10*3/uL (140-440); RBC 3.72 X 10*6/uL (4.10-5.20); RDW 12.8 % (11.5-14.5); WBC 13.23 X 10*3/uL (4.50-10.00)
[2022-12-21 11:14] LABS: BUN/Creat Ratio 15.12 Ratio (12.00-20.00); Blood Urea Nitrogen 12.1 mg/dL (9.0-27.0); Carbon Dioxide 27.6 mmol/L (21.6-31.8); Chloride 104 mmol/L (96-109); Glucose 126 mg/dL (70-110); Magnesium 1.7 mg/dL (1.5-2.4); Potassium 4.5 mmol/L (3.5-5.5); Sodium 140 mmol/L (135-145)
[2022-12-21 11:35] LABS: Glucose,Whole Blood 114 mg/dL (70-110)
[2022-12-21] MEDS ORDERED: MULTIVITAMINS, THERA 1 EACH TAB PO SCH (12:00)
[2022-12-21] MEDS: LACTATED RINGERS 1,000 ML IV SCH (12:39)
--- NOTE | 2022-12-21 13:44 | P.DS ---
Providers Expected date of discharge: 12/21/22 Attending physician: Wilian Good Consults: 12/20/22 07:05 Consult Physician Routine Consulting Provider: Tiesha Pollock Consult Reason/Comments: post op medical management Do you want consulting provider notified?: Yes Primary care physician: Radames Atwood MD - Discharge Diagnosis(es) (1) Osteoarthritis of left knee Patient was admitted to the OR on 12/20/22 to undergo a left total knee arthroplasty. SHe had failed conservative measures as an outpatient and desired to proceed with elective surgery after given informed consent. SHe underwent the above procedure which she tolerated well without complication. Postoperative hospital course has remained without complication. On day of discharge She is afebrile, vital signs stable, labs within acceptable ranges, tolerating by mouth meds and diet, voiding without difficulty, positive flatus, denies abdominal pain or calf pain, pain is controlled on oral pain medication and has no new co mplaints. Wound is benign, neurovascular status is intact, calf is soft and nontender, abdomen soft and nontender. Review of systems is negative for numbness, tingling, fever, chills, chest pain, shortness of breath, nausea, vomiting, dizziness, headaches, slurred speech or other. Current Visit: Yes Status: Acute Priority: Medium Procedures: Left TKA Patient Condition at Discharge: Good Plan - Discharge Summary Discharge Rx Participant: No New Discharge Prescriptions: New Cyclobenzaprine [Flexeril] 10 mg PO TID PRN #21 tab PRN Reason: Spasms HYDROcodone/APAP 7.5-325MG [[place] 7.5-325] 1 - 2 each PO Q6HR PRN #42 tab PRN Reason: Pain Ondansetron Odt [Zofran Odt] 4 mg PO Q8HR PRN #40 tab PRN Reason: Nausea Aspirin [Adult Low Dose Aspirin EC] 81 mg PO BID #60 tab Docusate [Colace] 100 mg PO BID #60 capsule Ondansetron [Zofran] 4 mg PO Q8HR PRN #21 tab PRN Reason: Nausea Continue Melatonin 3 mg PO HS Ascorbic Acid [Vitamin C] 1,000 mg PO DAILY Levothyroxine Sodium [Synthroid] 100 mcg PO QAM Furosemide [Lasix] 40 mg PO DAILY PRN PRN Reason: Edema Propranolol HCl [Inderal] 60 mg PO BID LORazepam [Ativan] 2 mg PO DAILY PRN PRN Reason: Anxiety DULoxetine HCL [Cymbalta] 60 mg PO QAM Biotin [Biotin Disolve] 10,000 mcg PO DAILY Unk Ozempic 0.5 mg SQ WE No Action Multivitamins, Thera [Multivitamin] 1 tab PO DAILY polyethylene glycoL 3350 [Miralax] 17 gm PO BID Cholecalciferol [Vitamin D3 (25 Mcg = 1000 Iu)] 50 mcg PO DAILY Naproxen Sodium [Aleve] 220 mg PO DAILY PRN PRN Reason: Pain Aspirin [Adult Low Dose Aspirin EC] 81 mg PO DAILY Discharge Medication List Multivitamins, Thera [Multivitamin] 1 tab PO DAILY 08/24/15 [History] Ascorbic Acid [Vitamin C] 1,000 mg PO DAILY 06/01/22 [History] Biotin [Biotin Disolve] 10,000 mcg PO DAILY 06/01/22 [History] Cholecalciferol [Vitamin D3 (25 Mcg = 1000 Iu)] 50 mcg PO DAILY 06/01/22 [History] DULoxetine HCL [Cymbalta] 60 mg PO QAM 06/01/22 [History] Furosemide [Lasix] 40 mg PO DAILY PRN 06/01/22 [History] LORazepam [Ativan] 2 mg PO DAILY PRN 06/01/22 [History] Levothyroxine Sodium [Synthroid] 100 mcg PO QAM 06/01/22 [History] Melatonin 3 mg PO HS 06/01/22 [History] Propranolol HCl [Inderal] 60 mg PO BID 06/01/22 [History] polyethylene glycoL 3350 [Miralax] 17 gm PO BID 06/01/22 [History] Aspirin [Adult Low Dose Aspirin EC] 81 mg PO DAILY 12/12/22 [History] Naproxen Sodium [Aleve] 220 mg PO DAILY PRN 12/12/22 [History] Unk Ozempic 0.5 mg SQ WE 12/12/22 [History] Aspirin [Adult Low Dose Aspirin EC] 81 mg PO BID #60 tab 12/21/22 [Rx] Cyclobenzaprine [Flexeril] 10 mg PO TID PRN #21 tab 12/21/22 [Rx] Docusate [Colace] 100 mg PO BID #60 capsule 12/21/22 [Rx] HYDROcodone/APAP 7.5-325MG [[place] 7.5-325] 1 - 2 each PO Q6HR PRN #42 tab 12/21/22 [Rx] Ondansetron Odt [Zofran Odt] 4 mg PO Q8HR PRN #40 tab 12/21/22 [Rx] Ondansetron [Zofran] 4 mg PO Q8HR PRN #21 tab 12/21/22 [Rx] Follow up Appointment(s)/Referral(s): Radames Atwood MD [Primary Care Provider] - 1 Week (Office is closed at time of discharge. Please call for follow-up appointment.) Wilian Good MD [STAFF PHYSICIAN] - 01/01/23 9:30 am Patient Instructions/Handouts: Joint Replacement Surgery (DC) Discharge Disposition: HOME WITH HOME HEALTH SERVICES
== END 2022-12-21 14:40 | disposition home health service (06) ==
LOC: OR 05:33 → 4SSUR 09:10 → OR 12-21 14:40
PROVIDERS: ATTEND Orthopaedic Surgery Sports Medicine
DX: M17.12 Unilateral primary osteoarthritis, left knee (principal); G89.18 Other acute postprocedural pain; I10 Essential (primary) hypertension; E03.9 Hypothyroidism, unspecified; K21.9 Gastro-esophageal reflux disease without esophagitis; E11.9 Type 2 diabetes mellitus without complications; K57.30 Diverticulosis of large intestine without perforation or abscess without bleeding; F41.9 Anxiety disorder, unspecified; K59.00 Constipation, unspecified; R19.04 Left lower quadrant abdominal swelling, mass and lump; F32.9 Major depressive disorder, single episode, unspecified; L23.0 Allergic contact dermatitis due to metals; Z90.710 Acquired absence of both cervix and uterus; Z98.890 Other specified postprocedural states; Z87.891 Personal history of nicotine dependence; Z83.3 Family history of diabetes mellitus; Z82.3 Family history of stroke; Z80.3 Family history of malignant neoplasm of breast; Z79.890 Hormone replacement therapy; Z79.82 Long term (current) use of aspirin; Z79.01 Long term (current) use of anticoagulants; Z79.891 Long term (current) use of opiate analgesic; Z79.899 Other long term (current) drug therapy
CPT/HCPCS: 97161; 64999; 64448; 80048; 83735; 85025; 83036; 73560; 27447; C1776; C1713; C1751; J2250; J1100; J0690 ×3; J2405 ×2; J3010; J2795; J2704; J2371

== ENCOUNTER → 2023-07-15 | Outpatient (CLI) | payer OTHER ==
--- NOTE | 2023-07-15 08:15 | US ---
EXAMINATION TYPE: US thyroid st tissue head/neck DATE OF EXAM: 07/15/2023 COMPARISON: EXAMINATION TYPE: US thyroid st tissue head/neck DATE OF EXAM: 07/15/2023 COMPARISON: 07/07/2019 CLINICAL INDICATION: Female, 62 years old with history of Enlarged lymph node R59.0; Took radiation p ill x 8 years left neck lump. TECHNIQUE: Grayscale imaging of the neck FINDINGS: Two hypoechoic areas seen 1. 0.4 x 0.8 x 0.6 cm. 2. 0.8 cm Both are suggestive of lymph nodes suggestive of lymph nodes. IMPRESSION: Palpable abnormality correlates with 2 lymph nodes which are are not enlarged.
[2023-07-15 11:24] LABS: Basophils # (A) 0.08 X 10*3/uL (0.00-0.10); Basophils % (A) 1.4 %; Eosinophils % (A) 3.4 %; HCT 51.2 % (37.2-46.3); HGB 16.3 g/dL (12.0-15.0); Lymphocytes # (A) 2.11 X 10*3/uL (0.90-5.00); Lymphocytes % (A) 36.2 %; MCH 31.2 pg (27.0-32.0); MCHC 31.8 g/dL (32.0-37.0); MCV 97.9 FL (80.0-97.0); Mean Platelet Volume 10.8 FL (9.5-12.2); Monocytes # (A) 0.52 X 10*3/uL (0.20-1.00); Monocytes % (A) 8.9 %; NRBC Per 100 WBC 0 X 10*3/uL (0.00-0.01); Neutrophils % (A) 49.8 %; Platelet Count 302 X 10*3/uL (140-440); RBC 5.23 X 10*6/uL (4.10-5.20); RDW 12.7 % (11.5-14.5); WBC 5.83 X 10*3/uL (4.50-10.00)
[2023-07-15 11:57] LABS: ALT 38 U/L (8-44); AST 34 U/L (13-35); Albumin 4.2 g/dL (3.8-4.9); Albumin/Globulin Ratio 1.68 Ratio (1.60-3.17); Alkaline Phosphatase 121 U/L (41-126); BUN/Creat Ratio 21.56 Ratio (12.00-20.00); Blood Urea Nitrogen 19.4 mg/dL (9.0-27.0); Calcium 10.4 mg/dL (8.7-10.3); Carbon Dioxide 26.4 mmol/L (21.6-31.8); Chloride 104 mmol/L (96-109); Chol/HDL Ratio 3.86 Ratio; Globulin 2.5 g/dL (1.6-3.3); Glucose 123 mg/dL (70-110); LDL Cholesterol,Calculated 123.4 mg/dL (0.0-131.0); Potassium 4.4 mmol/L (3.5-5.5); Sodium 140 mmol/L (135-145); T4, Free (Free Thyroxine) 1.67 ng/dL (0.80-1.80); Total Bilirubin 1.1 mg/dL (0.3-1.2); Total Protein 6.7 g/dL (6.2-8.2)
--- NOTE | 2023-07-17 09:11 | MM ---
Reason for Exam: Screening (asymptomatic). Last mammogram was performed 1 year(s) and 2 month(s) ago. Patient History: Menarche at age 15. Patient has no children. Left ovary removed at age 44. Right ovary removed at age 44. Hysterectomy at age 44. Postmenopausal. Estrogen, starting at age 44. Currently using Progesterone. Sister had breast cancer, age 68. Sister tested for BRCA1 outcome was negative. Risk Values: Lydia 5 year model risk: 2.7%. NCI Lifetime model risk: 12.1%. Prior Study Comparison: 05/29/2016 Bilateral Screening Mammogram, [facility]. 07/07/2019 Bilateral Screening Mammogram, [facility]. 05/29/2022 Bilateral MG screening mammo w CAD, [facility]. Tissue Density: The breasts are almost entirely fatty. Findings: Analyzed By CAD. There is no suspicious group of microcalcifications or new suspicious mass. Overall Assessment: Negative, BI-RAD 1 Management: Screening Mammogram of both breasts in [address] [facility] will attempt to contact patient to return for supplemental views and ultrasound if indicated. Patient should continue monthly self-breast exams. A clinical breast exam by your physician is recommended on an annual basis. This exam should not preclude additional follow-up of suspicious palpable abnormalities. Note on Lydia scores and lifetime risk: 1. A Lydia score greater than 3% is considered moderate risk. If this is the case, consider specialist referral to assess eligibility for a risk reducing agent. 2. If overall lifetime risk for the development of breast cancer is 20% or higher, the patient may qualify for future screening with alternating mammogram and breast MRI. Electronically signed and approved by: David Ochoa DO
== END | disposition home or self-care (01) ==
LOC: RADMAMWWP 06:59
PROVIDERS: ATTEND Internal Medicine
DX: Z12.31 Encounter for screening mammogram for malignant neoplasm of breast (principal); E11.9 Type 2 diabetes mellitus without complications; E03.9 Hypothyroidism, unspecified; M85.80 Other specified disorders of bone density and structure, unspecified site; R59.0 Localized enlarged lymph nodes; Z80.3 Family history of malignant neoplasm of breast; Z78.0 Asymptomatic menopausal state
CPT/HCPCS: 76536; 77067; 80053; 80061; 82306; 83036; 84439; 84443; 85025

== ENCOUNTER → 2023-10-09 | Outpatient (CLI) | payer OTHER ==
--- NOTE | 2023-10-09 11:31 | XR ---
EXAMINATION TYPE: XR chest 2V DATE OF EXAM: 10/09/2023 COMPARISON: NONE HISTORY: Night sweats TECHNIQUE: Frontal and lateral views of the chest are obtained. FINDINGS: Mild underlying emphysematous change. There is no pleural effusion or pneumothorax seen. T he cardiac silhouette size is within normal limits. Degenerative change in the thoracic spine is seen . Asymmetric increased opacity lower thoracic spine could reflect endplate sclerosis cannot exclude u nderlying mass or masslike consolidation at the level. IMPRESSION: As above. Advised chest CT follow-up to further evaluate to exclude posterior lower lung mass.
[2023-10-09 11:45] LABS: Basophils # (A) 0.1 k/uL (0-0.2); Basophils % (A) 1 %; Eosinophils # (A) 0.2 k/uL (0-0.7); Eosinophils % (A) 3 %; HGB 15.5 gm/dL (11.4-16.0); Lymphocytes # (A) 1.7 k/uL (1.0-4.8); Lymphocytes % (A) 30 %; MCH 30.6 pg (25.0-35.0); MCHC 31.6 g/dL (31.0-37.0); MCV 96.8 fL (80.0-100.0); Mean Platelet Volume 8.4; Monocytes # (A) 0.4 k/uL (0-1.0); Monocytes % (A) 6 %; Neutrophils # (A) 3.3 k/uL (1.3-7.7); Neutrophils % (A) 58 %; Platelet Count 290 k/uL (150-450); RBC 5.06 m/uL (3.80-5.40); RDW 12.9 % (11.5-15.5); WBC 5.7 k/uL (3.8-10.6)
[2023-10-09 12:18] LABS: Appearance,Urine Clear (Clear); Bilirubin,Urine Negative (Negative); Blood,Urine Negative (Negative); Color,Urine Yellow; Glucose,Urine (UA) Negative (Negative); Ketones,Urine Negative (Negative); Leukocyte Esterase,Urine Negative (Negative); Nitrite,Urine Negative (Negative); Protein,Urine Negative (Negative); Specific Gravity,Urine 1.024 (1.001-1.035); Urobilinogen,Urine <2.0 mg/dL (<2.0)
[2023-10-09 13:46] LABS: RBC Morphology Normal
[2023-10-09 18:43] LABS: ALT 14 U/L (8-44); AST 25 U/L (13-35); Albumin 4.1 g/dL (3.8-4.9); Albumin/Globulin Ratio 1.71 Ratio (1.60-3.17); Alkaline Phosphatase 93 U/L (41-126); Calcium 9.5 mg/dL (8.7-10.3); Carbon Dioxide 23.4 mmol/L (21.6-31.8); Chloride 108 mmol/L (96-109); Globulin 2.4 g/dL (1.6-3.3); Glucose 100 mg/dL (70-110); Sodium 140 mmol/L (135-145); T4, Free (Free Thyroxine) 1.48 ng/dL (0.80-1.80); Total Bilirubin 1.2 mg/dL (0.3-1.2); Total Protein 6.5 g/dL (6.2-8.2)
[2023-10-09 19:21] LABS: Microalbumin Creatinine Ratio <8 mg/g Cr (0-30)
[2023-10-10 15:57] LABS: Albumin 3.83 g/dL (3.80-4.90); Gamma Globulin 0.91 g/dL (0.70-1.50); Protein, Total 6.5 g/dL (5.7-8.2)
== END | disposition home or self-care (01) ==
LOC: LABWHC1 10:53
PROVIDERS: ATTEND Internal Medicine
DX: E11.9 Type 2 diabetes mellitus without complications (principal); K04.7 Periapical abscess without sinus; E03.9 Hypothyroidism, unspecified; M85.80 Other specified disorders of bone density and structure, unspecified site; R61 Generalized hyperhidrosis
CPT/HCPCS: 36415; 71046; 80053; 81003; 82043; 82306; 82570; 83036; 84165; 84439; 84443; 85025; 87040

== ENCOUNTER → 2023-10-21 | Outpatient (CLI) | payer OTHER ==
--- NOTE | 2023-10-21 17:23 | CT ---
EXAMINATION TYPE: CT soft tissue neck wo/w con DATE OF EXAM: 10/21/2023 COMPARISON: Thyroid ultrasound 07/15/2023 HISTORY: 63-year-old female R59.0, lt side neck mass TECHNIQUE: Contiguous axial scanning of the soft tissues of the neck performed without and with IV Co ntrast, patient injected with 100 mL of Isovue 300. Coronal/sagittal reconstructions performed. CT DLP: 1912 mGycm Automated exposure control for dose reduction was used. FINDINGS: Ectatic upper descending thoracic aorta at 3.8 cm. Bovine configuration to the aortic arch. Thyroid gland is very small with partially calcified nodularity measuring 9 mm on the left. A couple asymmetrically larger left submandibular space lymph nodes measure up to 1 cm. Just posterio rly, there is a palpable marker along the left upper neck without any additional cervical lymphadenop athy or neck mass seen. Nasopharynx appears clear. Moderate hypertrophy of the bilateral palatine tonsils. Oropharynx otherwise clear. Glottic and subglottic structures as well as the tracheal column visualized lungs appear clear. Under lying mild to moderate emphysematous change in the upper lungs. Submandibular glands are satisfactory. Mild to moderate degenerative disc disease mid to lower cervical spine. Visualized intracranial structures show persistent CSP. Paranasal sinuses, orbits and globes, and mas toid air cells appear clear. IMPRESSION: 1. A COUPLE ASYMMETRICALLY LARGER LEFT SUBMANDIBULAR SPACE LYMPH NODES MEASURING UP TO 1 CM ARE LIKEL Y REACTIVE/POST INFLAMMATORY. PALPABLE MARKER IS PLACED JUST POSTERIOR TO THIS REGION. NO OTHER LYMPH ADENOPATHY OR SUSPICIOUS NECK MASS IS SEEN. 2. Very small/atrophic thyroid gland. Partially calcified nodularity in the left lobe measuring 9 mm is nonspecific. Consider 6 month follow-up thyroid ultrasound to reassess. 3. Moderate bilateral palatine tonsillar hypertrophy.
--- NOTE | 2023-10-21 20:15 | CT ---
EXAMINATION TYPE: CT chest w con DATE OF EXAM: 10/21/2023 COMPARISON: Radiograph 10/09/2023 HISTORY: 62-year-old female R93.89, lt side mass TECHNIQUE: Contiguous axial scanning of the chest after the administration of 100 mL of Isovue 300. Coronal/sagittal reconstructions performed. CT DLP: 1912mGycm. Automatic exposure control utilized for a dose reduction. FINDINGS: Heart is upper limits of normal in size without pericardial effusion. Ectatic ascending aorta 3.7 cm. Bovine configuration to the aortic arch. Ectatic upper descending tho racic aorta 3.6 cm. Distal descending thoracic aorta 2.7 cm. No thoracic lymphadenopathy by CT size criteria. Mild emphysematous change. Hazy subpleural dependent atelectasis is noted. Strandy atelectasis lung b ases. 3 mm pulmonary nodule lateral left upper lobe, axial image 12. 6 mm posterior left upper lobe pulmonary nodule, axial image 17. No consolidation or pleural effusion. Visualized upper abdomen shows gallstones measuring up to 1.8 cm and hilar splenule. Bones: Moderate to advanced degenerative disc disease lower thoracic spine. Nonspecific sclerotic focus measuring 1.2 cm within the T7 vertebral body. No additional suspicious s clerotic foci are seen. IMPRESSION: 1. COPD with mild emphysema. 2. A couple pulmonary nodules measuring up to 6 mm. Six-month follow-up CT chest to reassess per Flei schner guidelines. 3. A nonspecific sclerotic focus within the T7 vertebral body. In the absence of any known primary ma lignancy, probably a bone island. Consider correlating with nuclear medicine whole body bone scan to survey the remainder of the skeleton. 4. Cholelithiasis.
== END | disposition home or self-care (01) ==
LOC: RADCTMAIN 12:51
PROVIDERS: ATTEND Internal Medicine
DX: R93.89 Abnormal findings on diagnostic imaging of other specified body structures (principal); J35.1 Hypertrophy of tonsils; J43.9 Emphysema, unspecified; K80.20 Calculus of gallbladder without cholecystitis without obstruction
CPT/HCPCS: 70492; 71260; Q9967

== ENCOUNTER → 2023-11-11 | Outpatient (CLI) | payer OTHER ==
--- NOTE | 2023-11-11 14:08 | NM ---
EXAMINATION TYPE: NM bone scan whole body DATE OF EXAM: 11/11/2023 COMPARISON: NONE CLINICAL INDICATION: Female, 63 years old with history of M89.9 BONE LESION; Delayed whole-body scanning was performed following the injection of 22.8 mCi Tc 99m MDP. Images acq uired 5.5 hours post injection. FINDINGS: At T9 and/or T10 there is moderately intense uptake noted. MRI is recommended with and without contra st. Otherwise there is degenerative uptake about the shoulders, knees and ankles and feet. Total knee arthroplasty is noted about the knees. Left-sided periodontal disease. IMPRESSION: At T9 and/or T10 there is moderately intense uptake noted. MRI is recommended with and without contra st.
== END | disposition home or self-care (01) ==
LOC: RADNMMAIN 07:19
PROVIDERS: ATTEND Internal Medicine
DX: M89.9 Disorder of bone, unspecified (principal); E04.1 Nontoxic single thyroid nodule
CPT/HCPCS: 78306; A9503

== ENCOUNTER → 2023-11-12 | Outpatient (CLI) | payer OTHER ==
--- NOTE | 2023-11-12 21:22 | US ---
EXAMINATION TYPE: US thyroid st tissue head/neck DATE OF EXAM: 11/12/2023 COMPARISON: CT 10/21/2023, US 07/07/2019 CLINICAL INDICATION: Female, 63 years old with history of E04.1 THY NOD; Patient on synthroid. Nodule per order. GLAND SIZE: Right Lobe: 3.4 x 1.2 x 1.0 cm Overall Parenchyma: heterogeneous and small in size Left Lobe: 3.7 x 1.0 x 1.3 cm Overall Parenchyma: heterogeneous and small in size Isthmus Thickness: 0.24 cm NODULES RIGHT: # of nodules measured on right: 0 LEFT: # of nodules measured on left: 2 1. 1.5 X 1.0 x 0.8 cm, mid mid, solid or almost completely solid, isoechoic nodule, which is wider than tall, with ill-defined margins, with echogenic foci. TR 4 Prior size: Possible nodule seen on prior CT 2. 0.7 X 0.6 x 0.6 cm, upper mid, solid or almost completely solid, hypoechoic nodule, which is as wide as it is tall, with smooth margins, without echogenic foci. Prior size: No prior ISTHMUS: # of nodules measured in the isthmus: 0 Bilateral neck scanned, *hypoechoic area with hyperechoic center seen within the left submandibular r egion measuring 1.2 x 1.0 x 0.7 cm. Cortex measures 5 mm. IMPRESSION: Moderately suspicious nodule left lobe thyroid. Consider fine-needle aspiration 2017 ACR TI-RADS LEVEL: TR-RADS 4 - Moderately Suspicious: Follow if > 1 cm, FNA if > 1.5 cm *Highest TI-RADS level nodule reported
== END | disposition home or self-care (01) ==
LOC: RADUSWWP 15:09
PROVIDERS: ATTEND Internal Medicine
DX: E04.1 Nontoxic single thyroid nodule (principal); R22.0 Localized swelling, mass and lump, head; M89.9 Disorder of bone, unspecified
CPT/HCPCS: 76536

== ENCOUNTER → 2023-12-03 | Outpatient (CLI) | payer OTHER ==
--- NOTE | 2024-01-02 15:42 | MR ---
Patient: Marlin Asif A Ordering Physician: Unknown, Unknown ID: [id number] Phone, Pager: Phone: N/A Pager: N/A : [phone] Age/Gender: 63Y, F Primary Location: N/A Procedure: MR thoracic spine w o/w con Study Date: 12/03/2023 7:45:00 PM EXAMINATION TYPE: MR thoracic spine wo/w con DATE OF EXAM: 12/18/2023 6:59 AM CLINICAL INDICATION: Bone scan abnormality involving the spine. COMPARISON: Bone scan 11/11/2023, CT 10/21/2023 TECHNIQUE: Multi planar, multi sequence imaging was performed utilizing: T1-weighted, short-tau inver alexis recovery and T2-weighted of the thoracic spine. IV Contrast: cc (none if empty) FINDINGS: Alignment: Alignment is within normal limits. Vertebral bodies have preserved heights. Spinal cord: Spinal cord is within normal limits for signal. Discs: Intervertebral disc signal is maintained. No evidence of significant spinal canal or neural fo raminal stenosis. There is no evidence of extradural defects or central spinal canal narrowing at any thoracic vertebral body level Osseous structures: Modic endplates at the adjoining endplates of T10 and T11 with sclerosis on CT im aging and low T1 and low T2 signal without postcontrast enhancement MRI imaging. No abnormal bony ga ma on inversion recovery sequences. Multilevel osteophyte formation and facet joint arthropathy. Scat tered disc space narrowing. L1 vertebral body height T1 high T2 signal probable meningioma versus foc al fat. The vertebral body low T1 and low T2 signal bone island. IMPRESSION: Area of concern at T10-T11 is felt to correlate with severe degeneration changes with Modic endplate changes which correlates with CT imaging and nuclear medicine imaging.
== END | disposition home or self-care (01) ==
LOC: RADMRIMAIN 19:30
PROVIDERS: ATTEND Internal Medicine
DX: R93.7 Abnormal findings on diagnostic imaging of other parts of musculoskeletal system (principal)
CPT/HCPCS: 72157; A9585

== ENCOUNTER 2024-04-17 09:02 | Day surgery (SDC) | payer OTHER ==
[~2024-04-17 09:02] MED LIST changes: -ACETAMINOPHEN TAB 500 MG TAB PO PRN; -GABAPENTIN 300 MG CAP PO PRN; +HYDROmorphone 0.5 MG/0.5 ML SYRINGE IVP PRN; -MELOXICAM 7.5 MG TAB PO PRN; -ONDANSETRON 4 MG/2 ML VIAL IVP PRN; +SCOPOLAMINE 1 MG/72 HR PATCH TRANSDERM ONE; -TRANEXAMIC 1,000 MG/100ML-NACL 1,000 MG in SALINE 1 100ML.BAG IVPB PRN
[2024-04-17 09:41] LABS: Glucose,Whole Blood 107 mg/dL (70-110)
[2024-04-17] MEDS: ONDANSETRON 4 MG/2 ML VIAL IVP ONE (09:43)
[2024-04-17] MEDS: DEXAMETHASONE SOD PHOSPHATE 4 MG/ML 1 ML VIAL IV ONE (09:44)
[2024-04-17] MEDS: MIDAZOLAM 2 MG/2 ML VIAL IV PRN (09:44)
[2024-04-17] MEDS: LACTATED RINGERS 1,000 ML IV SCH (09:44)
[2024-04-17] MEDS: IV FLUID CONTINUATION 1,000 ML IV ONE (09:47)
[2024-04-17] MEDS ORDERED: fentaNYL (PF) 50 MCG/ML 2 ML AMP ONE (10:55)
[2024-04-17] MEDS ORDERED: PHENYLEPHRINE-0.9% NACL SYG 1,000 MCG/10 ML SYRINGE ONE (10:55)
[2024-04-17] MEDS ORDERED: MIDAZOLAM 2 MG/2 ML VIAL ONE (10:55)
[2024-04-17] MEDS ORDERED: LIDOCAINE 1% INJ 10MG/ML (20 ML MDV) ONE (10:55)
[2024-04-17] MEDS ORDERED: PROPOFOL 10 MG/ML 20 ML VIAL IV ONE (10:55)
[2024-04-17] MEDS ORDERED: GLYCOPYRROLATE 0.2 MG/ML 2 ML VIAL ONE (10:55)
[2024-04-17] MEDS ORDERED: ePHEDrine 50 MG/ML 1 ML VIAL ONE (10:55)
[2024-04-17] MEDS ORDERED: SUCCINYLCHOLINE CHLORIDE 200 MG/10 ML VIAL IV ONE (10:55)
[2024-04-17] MEDS: ceFAZolin 1,000 MG in SODIUM CHLORIDE 0.9% 1,000 ML IRRIGATION ONE (10:57)
[2024-04-17] MEDS: BUPIVACAINE (PF) 0.25% 30 ML VIAL SQ ONE (11:10)
[2024-04-17] MEDS: LACTATED RINGERS 1,000 ML IV ONE (12:09)
[2024-04-17 12:29] VITALS: TEMP 97
[2024-04-17 12:36] LABS: Glucose,Whole Blood 107 mg/dL (70-110)
--- NOTE | 2024-04-17 12:36 | P.OP ---
Date of Procedure: 04/17/24 Preoperative Diagnosis: 1. Subluxation of the 2nd through 4th metatarsal phalangeal joints left foot 2. Hammertoe deformity 2nd through 4th digits left foot Postoperative Diagnosis: 1. Same 2. Same Procedure(s) Performed: 1. Metatarsal osteotomies 2 through 4 left foot 2. Hammertoe corrections digits 2 through 4 left foot Implants: Medline 2.3 mm hammertoe screws x 3 Anesthesia: GETA Surgeon: Solitario Bunn Estimated Blood Loss (ml): 2 Pathology: none sent Condition: stable Disposition: PACU Description of Procedure: Patient brought into the op room placed on table in supine position. Timeout was taken to confirm correct patient identifiers, correct laterality of surgery, correct procedure. Once all staff in the room was in agreement with the timeout, the patient was induced and placed under general anesthesia. A well- padded tourniquet was placed on the left ankle and then 30 mL of 0.25% Marcaine was injected as a posterior tibial nerve block and a forefoot block. The left was prepped and draped in the usual manner. The left foot was exsanguinated and the tourniquet inflated to 250 mmHg. Under direct fluoroscopic visualization, the neck 2nd through 4th metatarsals were identified with a metallic marker and then marked on the skin were made for the location of the incisions. Small stab incisions were made through the skin and then a blunt elevator was used to separate the tissue away from the metatarsal. Under direct fluoroscopic visualization, 2.2 mm rotary bur was utilized to create osteotomies through the metatarsal necks. The second and third were straight transverse osteotomies of the fourth was angled from a distal lateral to proximal medial direction so that it could realign with the digit. Once completed, the capital fragments were manipulated to alter the alignment so that they were rectus with the metatarsal phalangeal joint. Then attention was directed to the 2nd through 4th digits where linear incisions were made over the proximal inner phalangeal joints. The incisions were deepened down to the subcutaneous tissue care to identify, void, and retract any neurovascular structures and cauterize any bleeding vessels. Dissection was carried down to the proximal inner phalangeal joint of all the digits. A transverse incision was made through the capsule and extensor tendon of the proximal pointer phalangeal joint. A combination of a sagittal saw and the rotary bur were used to resect the head of the proximal phalanx as well as the articular surfaces of the base of the middle phalanx. Once the joint preparation was completed, guidewires for 2.3 mm headless screws were used to create the pilot boat captain holes in the proximal phalanx shaft. The wires were removed and then realigned at the base of the middle phalanx and advanced out the distal aspect of the digit. The wire was aligned with the pilot boat captain hole in the proximal phalanx and then the wire advanced to the base of the proximal phalanx. Fluoroscopy confirmed rectus alignment of the digits as well as proper placement the wires. Small stab incisions were made at the entry points of the wires. The appropriate sized 2.3 headless screw was inserted over the wire and then advanced until they had engaged the distal phalanx. Final fluoroscopic imaging showed rectus alignment of the second third and fourth digits with proper placement the hardware. All wounds were thoroughly irrigated with antibiotic saline. The hammertoe incisions as well as the metatarsal osteotomy incisions were closed with 3-0 nylon the distal incisions from the screw entry points were closed with glue. Nonadherent gauze and a dry sterile dressing were applied to the left foot. The tourniquet was released and capillary refill returned all digits on the left foot. Anesthesia was reversed and the patient was taken recovery with vital signs stable.
[2024-04-17 13:28] VITALS: BP 114/71; PULSE 73; RESP 18
== END 2024-04-17 13:58 | disposition home or self-care (01) ==
LOC: OR 09:02
PROVIDERS: ATTEND Podiatrist
DX: S93.145A Subluxation of metatarsophalangeal joint of left lesser toe(s), initial encounter (principal); M20.40 Other hammer toe(s) (acquired), unspecified foot; I10 Essential (primary) hypertension; E11.9 Type 2 diabetes mellitus without complications; E03.9 Hypothyroidism, unspecified; M19.90 Unspecified osteoarthritis, unspecified site; K21.9 Gastro-esophageal reflux disease without esophagitis; Z87.891 Personal history of nicotine dependence; Z79.890 Hormone replacement therapy; Z79.899 Other long term (current) drug therapy; X58.XXXA Exposure to other specified factors, initial encounter
CPT/HCPCS: 28285; 28308; J2250; J1100; J0690 ×2; J2405; J0665

== ENCOUNTER → 2024-05-15 | Outpatient (CLI) | payer OTHER ==
--- NOTE | 2024-05-15 16:56 | CT ---
EXAMINATION TYPE: CT chest wo con CT DLP: 548 mGycm, Automated exposure control for dose reduction was used. DATE OF EXAM: 05/15/2024 4:28 PM COMPARISON: CT chest 10/21/2023, nuclear medicine bone scan 11/11/2023, MRI 10/03/2023 CLINICAL INDICATION:Female, 63 years old with history of R91.1 LUNG NODULE; PHH, f/u nodule TECHNIQUE: Multiple axial images were obtained through the chest without IV contrast. Lack of IV or o ral contrast limits evaluation of solid and hollow organ viscera. . Coronal and sagittal reformats re viewed. FINDINGS: LUNGS/ PLEURA: No pleural effusion, pneumothorax, focal consolidation. Mild emphysematous change. St able left upper lobe 2 mm pulmonary nodule (series 4, image 14). Stable posterior left upper lobe carly undglass 7 lm or pulmonary nodule (series 4, image 19). No new or enlarging pulmonary nodules. AIRWAY: Patent and unremarkable.. HEART: Size within normal limits.No pericardial effusion. MEDIASTINUM: No gross evidence of adenopathy. VASCULATURE: No aortic aneurysm. Ectatic ascending aorta measuring up to 3.7 cm. Bovine configuratio n to the aortic arch. MUSCULOSKELETAL: No acute osseous abnormalities. Bilateral shoulder arthropathy. Multilevel degenerat valentín disc disease. Stable sclerotic 9 mm lesion within the T7 vertebral body. SOFT TISSUES/LYMPH NODES: Unremarkable. LOWER NECK: Stable macrocalcification within the left thyroid lobe. UPPER ABDOMEN: No significant findings. IMPRESSION: 1. No acute thoracic process. 2. Few stable pulmonary nodules measuring up to 7 mm. No new or enlarging pulmonary nodules. Follow-u p CT chest in one year is recommended to assess for stability. 3. Mild COPD changes. 4. Stable nonspecific sclerotic focus within the T7 vertebral body. Probable bone island. [facility], , 05/15/2024 4:54 PM
== END | disposition home or self-care (01) ==
LOC: RADCTMAIN 16:05
PROVIDERS: ATTEND Internal Medicine
DX: J44.9 Chronic obstructive pulmonary disease, unspecified (principal); R91.1 Solitary pulmonary nodule
CPT/HCPCS: 71250

== ENCOUNTER → 2024-08-07 | Outpatient (CLI) | payer OTHER ==
--- NOTE | 2024-08-07 14:28 | US ---
EXAMINATION TYPE: US thyroid st tissue head/neck DATE OF EXAM: 08/07/2024 COMPARISON: NONE CLINICAL INDICATION: Female, 63 years old with history of E04.1 NONTOXIC SINGLE THYRO E03.9 M85.80 I1 0 E11.9; follow up exam, also patient has left submandibular palp TECHNIQUE: Grayscale and color Doppler imaging of the thyroid gland. FINDINGS: GLAND SIZE: Right Lobe: 2.5 x 0.7 x 0.6 cm Overall Parenchyma: heterogeneous Left Lobe: 3.0 x 0.9 x 0.9 cm Overall Parenchyma: heterogeneous Isthmus Thickness: 0.2 cm NODULES RIGHT: # of nodules measured on right: 0 LEFT: # of nodules measured on left: diffusley heterogeneous ISTHMUS: # of nodules measured in the isthmus: 0 Bilateral neck scanned, no evidence of lymphadenopathy. IMPRESSION: 1. No suspicious thyroid nodules. 2. Small 0.7 x 0.6 x 0.5 cm nodule at the palpable region left submandibular gland is nonspecific and may be a small lymph node [facility], , 08/07/2024 2:26 PM
== END | disposition home or self-care (01) ==
LOC: RADUSWWP 13:03
PROVIDERS: ATTEND Internal Medicine
DX: E04.1 Nontoxic single thyroid nodule (principal); E03.9 Hypothyroidism, unspecified; I10 Essential (primary) hypertension; E11.9 Type 2 diabetes mellitus without complications; M85.80 Other specified disorders of bone density and structure, unspecified site
CPT/HCPCS: 76536

== ENCOUNTER → 2024-08-07 | Outpatient (CLI) | payer OTHER ==
--- NOTE | 2024-08-07 17:26 | MM ---
Reason for Exam: Screening (asymptomatic). Last mammogram was performed 1 year(s) and 1 month(s) ago. Patient History: Menarche at age 15. Patient has no children. Left ovary removed at age 44. Right ovary removed at age 44. Hysterectomy at age 44. Postmenopausal. Estrogen, starting at age 44 for 1 year. Patient used Progesterone for 1 year. Sister had breast cancer, age 68. Sister tested for BRCA1 outcome was negative. Risk Values: Lydia 5 year model risk: 2.8%. NCI Lifetime model risk: 11.7%. Prior Study Comparison: 07/07/2019 Bilateral Screening Mammogram, [facility]. 05/29/2022 Bilateral MG screening mammo w CAD, [facility]. 07/15/2023 Bilateral MG screening mammo w CAD, [facility]. Tissue Density: There are scattered areas of fibroglandular density. Findings: Analyzed By CAD. Subareolar asymmetric density left cc view is unchanged. Inferior asymmetric density left MLO view in groups on the second MLO view with appearance similar to 2020. There is no suspicious group of microcalcifications or new suspicious mass in either breast. Overall Assessment: Benign, BI-RAD 2 Management: Screening Mammogram of both breasts in 1 year. . Patient should continue monthly self-breast exams. A clinical breast exam by your physician is recommended on an annual basis. This exam should not preclude additional follow-up of suspicious palpable abnormalities. Note on Lydia scores and lifetime risk: 1. A Lydia score greater than 3% is considered moderate risk. If this is the case, consider specialist referral to assess eligibility for a risk reducing agent. 2. If overall lifetime risk for the development of breast cancer is 20% or higher, the patient may qualify for future screening with alternating mammogram and breast MRI. [facility], , 08/07/2024 5:23 PM. Electronically signed and approved by: Bert Coffman M.D. Radiologist
[2024-08-07 18:46] LABS: Basophils # (A) 0.07 X 10*3/uL (0.00-0.10); Eosinophils # (A) 0.11 X 10*3/uL (0.04-0.35); Eosinophils % (A) 1.5 %; HCT 48.6 % (37.2-46.3); HGB 15.7 g/dL (12.0-15.0); Lymphocytes # (A) 2.85 X 10*3/uL (0.90-5.00); Lymphocytes % (A) 39.5 %; MCH 31.2 pg (27.0-32.0); MCHC 32.3 g/dL (32.0-37.0); MCV 96.4 FL (80.0-97.0); Mean Platelet Volume 11.2 FL (9.5-12.2); Monocytes # (A) 0.45 X 10*3/uL (0.20-1.00); Monocytes % (A) 6.2 %; NRBC Per 100 WBC 0 X 10*3/uL (0.00-0.01); Neutrophils # (A) 3.73 X 10*3/uL (1.80-7.70); Neutrophils % (A) 51.7 %; Platelet Count 282 X 10*3/uL (140-440); RBC 5.04 X 10*6/uL (4.10-5.20); RDW 12.8 % (11.5-14.5); WBC 7.22 X 10*3/uL (4.50-10.00)
[2024-08-07 19:00] LABS: ALT 19 U/L (8-44); AST 28 U/L (13-35); Albumin 4.3 g/dL (3.8-4.9); Albumin/Globulin Ratio 1.79 Ratio (1.60-3.17); Alkaline Phosphatase 94 U/L (41-126); BUN/Creat Ratio 25.78 Ratio (12.00-20.00); Blood Urea Nitrogen 23.2 mg/dL (9.0-27.0); Calcium 10.4 mg/dL (8.7-10.3); Carbon Dioxide 24.3 mmol/L (21.6-31.8); Chloride 106 mmol/L (96-109); Chol/HDL Ratio 3.28 Ratio; Globulin 2.4 g/dL (1.6-3.3); Glucose 89 mg/dL (70-110); LDL Cholesterol,Calculated 135.7 mg/dL (0.0-131.0); Potassium 4.4 mmol/L (3.5-5.5); Sodium 141 mmol/L (135-145); T4, Free (Free Thyroxine) 1.71 ng/dL (0.80-1.80); Total Bilirubin 1.3 mg/dL (0.3-1.2); Total Protein 6.7 g/dL (6.2-8.2)
== END | disposition home or self-care (01) ==
LOC: RADMAMWWP 13:14
PROVIDERS: ATTEND Internal Medicine
DX: Z12.31 Encounter for screening mammogram for malignant neoplasm of breast (principal); R92.323 Mammographic fibroglandular density, bilateral breasts; Z78.0 Asymptomatic menopausal state; Z80.3 Family history of malignant neoplasm of breast
CPT/HCPCS: 77067; 80053; 80061; 82043; 82306; 82570; 83036; 83735; 84439; 84443; 85025